=== PATIENT | female | born 1940 ===

== ENCOUNTER 2022-10-10 05:54 | Day surgery (SDC) | payer OTHER | END 2022-10-10 13:45 | disposition home or self-care (01) | LOC: AMB-ENDOS 05:54 | PROVIDERS: ATTEND Surgery | DX: D12.2 Benign neoplasm of ascending colon (principal); D12.5 Benign neoplasm of sigmoid colon; K57.30 Diverticulosis of large intestine without perforation or abscess without bleeding; K64.8 Other hemorrhoids; Z20.822 Contact with and (suspected) exposure to COVID-19 ==